=== PATIENT | female | born 1995 | race African-American/Black ===

== ENCOUNTER 2020-06-24 18:30 | Emergency (ER) | payer OTHER ==
--- NOTE | 2020-06-24 19:28 | ED ---
Female Urogenital HPI - General Chief complaint: Urogenital Stated complaint: STD Check Time Seen by Provider: 06/24/20 19:06 Source: patient, RN notes reviewed, old records reviewed Mode of arrival: ambulatory Limitations: no limitations - History of Present Illness Initial comments: This is a 24-year-old female presents emergency department today for concern for STDs. Patient states that she's been having some vaginal itching discharge and burning with urination for the past week. Patient reports that she treated herself with her concerning for yeast infection. She reports it does not not improved. Patient is concerned for Trichomonas that she's had this before. She reports that she had a baby 4 months ago. Last Menstrual Period: 06/22/20 - Related Data Previous Rx's Medication Instructions Recorded valACYclovir HCL [Valtrex] 1,000 mg PO Q8HR #21 tab 06/24/20 Allergies Allergy/AdvReac Type Severity Reaction Status Date / Time codeine Allergy Unknown Verified 06/24/20 19:04 Review of Systems ROS Statement: Those systems with pertinent positive or pertinent negative responses have been documented in the HPI. ROS Other: All systems not noted in ROS Statement are negative. Past Medical History Past Medical History: No Reported History History of Any Multi-Drug Resistant Organisms: None Reported Past Surgical History: No Surgical Hx Reported Past Psychological History: No Psychological Hx Reported Smoking Status: Current every day smoker Past Alcohol Use History: Occasional Past Drug Use History: Marijuana General Exam - General Exam Comments Initial Comments: Alert and oriented 24-year-old -[place] female. No distress. Limitations: no limitations General appearance: alert, in no apparent distress Head exam: Present: atraumatic, normocephalic, normal inspection Eye exam: Present: normal appearance, PERRL, EOMI. Absent: scleral icterus, conjunctival injection, periorbital swelling ENT exam: Present: normal exam, mucous membranes moist Neck exam: Present: normal inspection. Absent: tenderness, meningismus, lymphadenopathy Respiratory exam: Present: normal lung sounds bilaterally. Absent: respiratory distress, wheezes, rales, rhonchi, stridor Cardiovascular Exam: Present: regular rate, normal rhythm, normal heart sounds. Absent: systolic murmur, diastolic murmur, rubs, gallop, clicks GI/Abdominal exam: Present: soft, normal bowel sounds. 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 Patient has evidence of ulceration over her vaginal vault concern for herpes infection. There is very tender. Evidence of white purulent vaginal discharge from vaginal vault.), erythema Speculum exam: Present: cervical discharge. Absent: normal speculum exam, vaginal discharge By manual exam: Present: normal by manual exam. Absent: cervical motion tenderness, adnexal tenderness, adnexal mass, uterine enlargement Course Vital Signs 06/24/20 19:01 Temperature 98.6 F Pulse Rate 102 H Respiratory 18 Rate Blood Pressure 120/72 O2 Sat by Pulse 99 Oximetry Medical Decision Making - Medical Decision Making 24-year-old female presents the ER today for concern for ST ice. Patient has evidence of significant vaginal discharge. No adnexal tenderness. She also has evidence of ulceration or vaginal flow concerning for herpes infection. She also has evidence of condyloma collided. 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 Discussed the Patient should see a manager trainee have full Pap smear completed. Patient will be treated at this time for all TIAs and given Rocephin and azithromycin and Flagyl. Patient be treated for concern for herpes infection as well with Valtrex. Discussed abstaining from sexual intercourse for the next 2 weeks. Disposition Clinical Impression: Herpes genitalia, Concern about STD in female without diagnosis Disposition: HOME SELF-CARE Condition: Stable Instructions (If sedation given, give patient instructions): Genital Herpes Simplex (ED), Sexually Transmitted Diseases (ED) Additional Instructions: Take the medications as prescribed. Abstain from intercourse for 2 weeks. Return to the ED if any alarming signs or symptoms occur. Prescriptions: valACYclovir HCL [Valtrex] 1,000 mg PO Q8HR #21 tab Is patient prescribed a controlled substance at d/c from ED?: No Referrals: None,Stated [Primary Care Provider] - 1-2 days Stuart Muir DO [Doctor of Osteopathic Medicine] - 1-2 days Time of Disposition: 19:56
[2020-06-24] MEDS ORDERED: cefTRIAXone 250 MG VIAL IM STA (19:31)
[2020-06-24] MEDS ORDERED: AZITHROMYCIN 500 MG TAB PO STA (19:31)
[2020-06-24] MEDS ORDERED: metroNIDAZOLE 500 MG TAB PO STA (19:31)
[2020-06-24] MEDS ORDERED: valACYclovir HCL 1,000 MG TABLET PO STA (19:48)
[2020-06-24 20:20] LABS: Amorphous Sediment,Urine Rare /hpf; Appearance,Urine Turbid (Clear); Bacteria,Urine Rare /hpf; Bilirubin,Urine Negative (Negative); Blood,Urine Negative (Negative); Color,Urine Yellow; Glucose,Urine (UA) Negative (Negative); Ketones,Urine Negative (Negative); Leukocyte Esterase,Urine Moderate (Negative); Mucus,Urine Moderate /hpf; Nitrite,Urine Negative (Negative); Protein,Urine Trace (Negative); RBC,Urine 3 /hpf (0-5); Specific Gravity,Urine 1.025 (1.001-1.035); Squamous Epithelial Cell,Urine 16 /hpf (0-4); WBC,Urine 14 /hpf (0-5)
[2020-06-24 20:56] VITALS: BP 111/80; PULSE 81; RESP 12; TEMP 98.4
[2020-06-25 16:13] LABS: C. trachomatis,PCR Negative (Neg,Equiv); Chlamydia trachomatis Source Vagina; N. gonorrhoeae,PCR Negative (Neg,Equiv); Neisseria Source Vagina
== END 2020-06-24 20:55 | disposition home or self-care (01) ==
LOC: EC 18:30
DX: A60.00 Herpesviral infection of urogenital system, unspecified (principal); Z71.1 Person with feared health complaint in whom no diagnosis is made; F17.200 Nicotine dependence, unspecified, uncomplicated; Z88.5 Allergy status to narcotic agent
CPT/HCPCS: 81001; 81025; 87808; 87491; 87591; 87070; 87086; 99284; 96372; J0696